=== PATIENT | male | born 1985 | race Caucasian/White ===

== ENCOUNTER 2016-07-01 07:31 | Emergency (ER) | payer SELFPAY ==
[~2016-07-01] VITALS: Ht 172.7 cm; Wt 97.5 kg
[~2016-07-01 07:31] MED LIST: CLINDAMYCIN HC300 MG PO; HYDROCODONE BIT1 T11 PO; Motrin,Rufen800 MG PO
[2016-07-01] MEDS ORDERED: CLINDAMYCIN150 MG PO (07:57)
[2016-07-01] MEDS ORDERED: HYDROCODONE BIT1 T11 PO (07:57)
[2016-07-01] MEDS ORDERED: Motrin,Rufen800 MG PO (07:57)
== END 2016-07-01 09:22 | disposition home or self-care (01) ==
LOC: ED 07:31
DX: K04.7 Periapical abscess without sinus (principal); F17.200 Nicotine dependence, unspecified, uncomplicated

== ENCOUNTER 2017-02-10 14:53 | Inpatient (IN) | payer SELFPAY ==
[~2017-02-10] VITALS: Ht 172.7 cm; Wt 88.2 kg
[~2017-02-10 14:53] MED LIST changes: +CLINDAMYCIN150 MG PO
[2017-02-10 15:02] VITALS: BP 174/100
[2017-02-10 16:00] LABS: BILIRUBIN NEGATIVE (NEGATIVE); BLOOD NEGATIVE (NEGATIVE); CLARITY CLEAR (CLEAR); COLOR STRAW (YELLOW); GLUCOSE NEGATIVE (NEGATIVE); KETONE NEGATIVE (NEGATIVE); LEUKO ESTERASE NEGATIVE (NEGATIVE); NITRITE NEGATIVE (NEGATIVE); UROBILINOGEN 0.2 E.U./dl (0.2-1.0)
[2017-02-10 16:04] LABS: BASO # 0.1 10*3/uL (0.0-0.1); BASO % 0.4 % (0.0-1.0); HEMATOCRIT 47.2 % (42.0-52.0); HEMOGLOBIN 16.4 g/dl (14.0-18.0); LYMPH # 1.6 10*3/uL (1.3-4.4); LYMPH % 12.2 % (27.0-41.0); MEAN CELL VOLUME 91.3 fl (80.0-94.0); MEAN CORPUSCULAR HGB 31.7 pg (27.0-31.0); MEAN CORPUSCULAR HGB CONC 34.7 g/dl (33.0-37.0); MONO # 0.6 10*3/uL (0.1-1.0); MONO % 4.6 % (3.0-9.0); NEUT # 10.9 10*3/uL (2.3-7.9); NEUT % 82.4 % (47.0-73.0); PLATELET COUNT AUTOMATED 241 10*3/uL (130-400); RED BLOOD COUNT 5.17 10*6/uL (4.50-5.90); WHITE BLOOD COUNT 13.2 10*3/uL (4.8-10.8)
[2017-02-10 16:10] LABS: URINE AMPHETAMINES < 1000 (1000ng/ml); URINE BARBITURATES < 200 (200ng/ml); URINE BENZODIAZEPINES < 200 (200ng/ml); URINE CANNABINOIDS (THC) < 50 (50ng/ml); URINE COCAINE < 300 (300ng/ml); URINE METHADONE < 300 (300ng/ml); URINE OPIATES < 300 (300ng/ml)
[2017-02-10 16:11] LABS: URINE PHENCYCLIDINE < 25 (25ng/ml)
[2017-02-10 16:18] LABS: BACTERIA TRACE; EPITHELIAL CELLS 0-2; RBC 0-2 rbc/hpf (0-2); WBC 0-2 wbc/hpf (0-5)
[2017-02-10 16:22] LABS: ALBUMIN 4.3 gm/dl (3.1-4.5); ALKALINE PHOSPHATASE 134 U/L (45-117); BUN 9 mg/dl (7-24); CHLORIDE 103 mmol/L (98-107); CREATININE 0.76 mg/dL (0.70-1.30); POTASSIUM 3.7 mmol/L (3.5-5.1); SGOT/AST 35 IU/L (3-35); SGPT/ALT 32 U/L (12-78); SODIUM 137 mmol/L (136-145)
[2017-02-10 16:27] LABS: TROPONIN I < 0.015 ng/ml (<0.045)
[2017-02-10 16:29] VITALS: BP 155/98
[2017-02-10 19:20] VITALS: BP 146/92
[2017-02-10 19:52] VITALS: BP 158/92
[2017-02-10 20:22] VITALS: BP 154/102
[2017-02-11] VITALS: BP 145/102
[2017-02-11 05:58] LABS: ALBUMIN 3.3 gm/dl (3.1-4.5); ALKALINE PHOSPHATASE 87 U/L (45-117); BUN 8 mg/dl (7-24); CHLORIDE 105 mmol/L (98-107); CHOLESTEROL 158 mg/dL (<200); CREATININE 0.73 mg/dL (0.70-1.30); HDL CHOLESTEROL 77 mg/dl (40-60); LDL CHOLESTEROL 47 mg/dL (9-159); PHOSPHOROUS 3.4 mg/dL (2.5-4.9); POTASSIUM 3.3 mmol/L (3.5-5.1); SGOT/AST 13 IU/L (3-35); SGPT/ALT 26 U/L (12-78); SODIUM 139 mmol/L (136-145); TOTAL PROTEIN 6.5 gm/dL (6.4-8.2); TRIGLYCERIDES 170 mg/dl (<150); VLDL CHOLESTEROL 34 mg/dL (6-40)
[2017-02-11 06:16] LABS: BASO # 0.1 10*3/uL (0.0-0.1); BASO % 0.6 % (0.0-1.0); HEMATOCRIT 43.8 % (42.0-52.0); HEMOGLOBIN 15.2 g/dl (14.0-18.0); LYMPH # 2.7 10*3/uL (1.3-4.4); MEAN CELL VOLUME 92.6 fl (80.0-94.0); MEAN CORPUSCULAR HGB 32.1 pg (27.0-31.0); MEAN CORPUSCULAR HGB CONC 34.7 g/dl (33.0-37.0); MEAN PLATELET VOLUME 11.1 fl (9.6-12.3); MONO # 0.6 10*3/uL (0.1-1.0); MONO % 7.2 % (3.0-9.0); NEUT # 5.3 10*3/uL (2.3-7.9); PLATELET COUNT AUTOMATED 201 10*3/uL (130-400); RED BLOOD COUNT 4.73 10*6/uL (4.50-5.90); RED CELL DISTRI WIDTH 12.1 % (0-14.5); WHITE BLOOD COUNT 8.7 10*3/uL (4.8-10.8)
[2017-02-11 08:00] VITALS: BP 153/100
[2017-02-11 12:00] VITALS: BP 138/80
[2017-02-11 16:00] VITALS: BP 148/100
[2017-02-11 20:00] VITALS: BP 139/82
[2017-02-12] VITALS: BP 170/93
[2017-02-12 00:37] VITALS: BP 150/84
[2017-02-12 06:57] LABS: BUN 6 mg/dl (7-24); CHLORIDE 107 mmol/L (98-107); POTASSIUM 3.3 mmol/L (3.5-5.1); SODIUM 141 mmol/L (136-145)
[2017-02-12 08:00] VITALS: BP 140/94
[2017-02-12] MEDS ORDERED: AUGMENTIN 875-875 MG PO (08:46)
[2017-02-12] MEDS ORDERED: LOPRESSOR25 MG PO (08:46)
[2017-02-12] MEDS ORDERED: THERA TABLET400 MCG PO (08:46)
[2017-02-12] MEDS ORDERED: PANTOPRAZOLE SO40 MG PO (08:46)
[2017-02-12] MEDS ORDERED: NATURE'S BLEND100 M2 PO (08:46)
[2017-02-12] MEDS ORDERED: VITAMIN D50000 UNIT PO (08:46)
[2017-02-12] MEDS ORDERED: ATARAX,VISTARIL50 MG PO (08:46)
[2017-02-12 12:00] VITALS: BP 136/92
== END 2017-02-12 12:52 | disposition home or self-care (01) | DRG 872 ==
LOC: ED 14:53 → 4E 19:59 → EDHOLD 19:59 → 4E 20:12
PROVIDERS: Hospitalist; Internal Medicine Hospice and Palliative Medicine; Physician Assistant
DX: A41.9 Sepsis, unspecified organism (principal); E55.9 Vitamin D deficiency, unspecified; E87.6 Hypokalemia; F10.10 Alcohol abuse, uncomplicated; K04.7 Periapical abscess without sinus; R65.20 Severe sepsis without septic shock; F12.10 Cannabis abuse, uncomplicated; K02.9 Dental caries, unspecified; F17.210 Nicotine dependence, cigarettes, uncomplicated; Z71.6 Tobacco abuse counseling; Z71.41 Alcohol abuse counseling and surveillance of alcoholic

== ENCOUNTER → 2017-02-16 | Outpatient (CLI) | payer SELFPAY ==
[~2017-02-16] MED LIST changes: +ATARAX,VISTARIL50 MG PO; +AUGMENTIN 875-875 MG PO; +LOPRESSOR25 MG PO; +NATURE'S BLEND100 M2 PO; +PANTOPRAZOLE SO40 MG PO; +THERA TABLET400 MCG PO; +VITAMIN D50000 UNIT PO
== END | disposition home or self-care (01) ==
LOC: RESCLI 03:01
DX: E55.9 Vitamin D deficiency, unspecified (principal); R73.03 Prediabetes; F10.10 Alcohol abuse, uncomplicated; K02.9 Dental caries, unspecified; E66.09 Other obesity due to excess calories; Z68.31 Body mass index [BMI] 31.0-31.9, adult; Z72.0 Tobacco use; Z71.6 Tobacco abuse counseling

== ENCOUNTER → 2017-04-07 | Day surgery (SDC) | payer MEDICAID ==
[2017-04-02 09:48] VITALS: BP 126/90
[~2017-04-07] VITALS: Ht 168.9 cm; Wt 92.5 kg
[~2017-04-07] MED LIST changes: +LISINOPRIL10 M1 PO; +MEDROL DOSEPAK4 MG PO; +NORCO 5-325 TA1 EACH PO
--- NOTE | ~2017-04-07 | O ---
[place], [place] OPERATIVE NOTE NAME: NICOLE GRAFF UNIT #: [id number] ROOM: DOCTOR: LATANYA ZAMBRANO DMD BIRTHDATE: [birth year] DOS: 04/07/2017 PREOPERATIVE DIAGNOSES: Caries, periodontal disease, and anxiety. POSTOPERATIVE DIAGNOSES: Caries, periodontal disease, and anxiety. ANESTHESIA: General anesthesia with nasotracheal intubation. FLUIDS: Minimal. ESTIMATED BLOOD LOSS: 100 mL COMPLICATIONS: None. CONDITION: To PACU, stable. DESCRIPTION OF PROCEDURE: The patient was brought to the OR and placed in supine position. IV and EKG lines were placed. Nasotracheal intubation, general anesthesia was administered. The patient was prepped and draped for oral procedures. Risks and benefits were explained to the patient prior to surgery. Clinical exam and x-rays taken, determined nonrestorable maxillary mandibular dentition due to caries and periodontal disease. PROCEDURES PERFORMED: Complete extraction of teeth numbers 1, 2, 3, 4, 5, 6, 7, 8, 9, 10, 11, 12, 13, 14, 15, 16, 17, 18, 19, 20, 21, 22, 23, 24, 25, 26, 27, 28, 29, 30, 31 and 32. Full thickness flaps in all 4 quadrants with moderate bone removal and sectioning to complete extractions and moderate alveoplasty. Gelfoam placed in all 4 quadrants. Sutured with 4-0 Vicryl. Lavaged x 2. Throat pack removed. The patient left the OR in good condition and went to the PACU. LATANYA ZAMBRANO DMD CM:OPRECORD:OPERATIVE NOTE [id number] LATANYA ZAMBRANO DMD 04/08/17 1426 interface
[2017-04-07 10:42] VITALS: BP 133/84
[2017-04-07 14:00] VITALS: BP 137/93
[2017-04-07 14:11] VITALS: BP 125/83
[2017-04-07 14:30] VITALS: BP 130/87
[2017-04-07 14:42] VITALS: BP 136/86
[2017-04-07 14:57] VITALS: BP 143/85
== END ==
LOC: SDC 04-02 09:30
DX: K02.9 Dental caries, unspecified (principal); F41.9 Anxiety disorder, unspecified; I10 Essential (primary) hypertension; Z82.49 Family history of ischemic heart disease and other diseases of the circulatory system; Z80.9 Family history of malignant neoplasm, unspecified; F17.210 Nicotine dependence, cigarettes, uncomplicated